=== PATIENT | female | born 1940 | race Caucasian/White ===

== ENCOUNTER 2022-03-05 14:13 | Inpatient (IN) | payer MEDICARE ==
[2022-03-06] MEDS ORDERED: Ondansetron PF 4 MG/2 ML Vial IVP PRN (19:56)
[2022-03-06] MEDS ORDERED: Acetaminophen 325 MG TAB PO PRN (19:56)
[2022-03-06] MEDS ORDERED: HYDROcodone/Acetaminophen 5/325 mg Tablet PO PRN ×2 (19:56)
[2022-03-06] MEDS ORDERED: Ondansetron ODT 4 MG TAB PO PRN (19:56)
[2022-03-07] MEDS: Ipratropium Bromide 2.5 ml Neb NEB PRN (04:40)
[2022-03-07 06:11] LABS: #Basophils 0.1 thou/uL (0.0-0.2); #Eosinphils 0.2 thou/uL (0.0-0.7); #Lymphocytes 1.5 thou/uL (1.20-3.40); #Monocytes 0.7 thou/uL (0.11-0.59); %Basophils 1.1 % (0.0-1.0); %Eosinophils 2.7 % (0.0-10.0); %Lymphocytes 23.5 % (21.0-51.0); %Monocytes 10.7 % (0.0-10.0); Hemoglobin 11.3 g/dL (12.0-16.0); Mean Corpuscular HGB CONC 30.8 g/dL (32.0-36.0); Mean Corpuscular Hemoglobin 32.2 pg (27.0-31.0); Mean Platelet Volume 9.3 fL (7.4-10.4); Platelet Count 179 thou/uL (130-400); RBC Distribution Width 11.7 % (11.5-14.5); Red Blood Cell (RBC) Count 3.52 mill/uL (4.20-5.40); White Blood Cell (WBC) Count 6.5 thou/uL (4.8-10.8)
[2022-03-07 06:12] LABS: ALT (SGPT) 11 U/L (8-55); AST (SGOT) 15 U/L (5-34); Albumin 3.8 g/dL (3.4-4.8); Alkaline Phosphatase 76 U/L (40-110); BUN (Urea Nitrogen) 17 mg/dL (9.8-20.1); Bilirubin, Total 0.5 mg/dL (0.2-1.2); Calc. Creatinine Clearance 63 mL/min (70-130); Calcium 9.1 mg/dL (7.8-10.44); Estimated GFR 89; Globulin 3.5 g/dL (2.4-3.5); Glucose 112 mg/dL (83-110)
[2022-03-07 06:15] LABS: Chloride 88 mmol/L (98-107); Potassium 3.5 mmol/L (3.5-5.1); Sodium 143 mmol/L (136-145)
[2022-03-07 06:26] LABS: Carbon Dioxide 37 mmol/L (23-31); Protein, Total 7.3 g/dL (5.8-8.1)
[2022-03-07] MEDS: Ferrous Sulfate 325 MG TAB PO SCH (09:21)
[2022-03-07] MEDS: Aspirin Chewable 81 MG TAB PO SCH (09:21)
[2022-03-07] MEDS: Clopidogrel Bisulfate 75 MG TAB PO SCH (09:21)
[2022-03-07] MEDS: Enoxaparin Sodium 40 MG/0.4 ML SYRINGE SC SCH (09:21)
[2022-03-07] MEDS: Multivitamin W/ Minerals 1 TAB PO SCH (09:21)
[2022-03-07] MEDS: Cholecalciferol 1,000 UNITS (25 MCG) TAB PO SCH (09:21)
[2022-03-07] MEDS: ZONISAMIDE 25 MG PO SCH (22:00)
[2022-03-08] MEDS ORDERED: Polyethylene Glycol 3350 17 GM Packet PO PRN (07:14)
[2022-03-08] MEDS: Enoxaparin Sodium 40 MG/0.4 ML SYRINGE SC SCH (08:20)
[2022-03-08] MEDS: Cholecalciferol 1,000 UNITS (25 MCG) TAB PO SCH (08:21)
[2022-03-08] MEDS: Ferrous Sulfate 325 MG TAB PO SCH (08:21)
[2022-03-08] MEDS: Clopidogrel Bisulfate 75 MG TAB PO SCH (08:21)
[2022-03-08] MEDS: Multivitamin W/ Minerals 1 TAB PO SCH (08:21)
[2022-03-08] MEDS: Aspirin Chewable 81 MG TAB PO SCH (08:21)
[2022-03-08] MEDS: ZONISAMIDE 25 MG PO SCH ×2 (21:05)
[2022-03-09 06:10] LABS: #Basophils 0.1 thou/uL (0.0-0.2); #Eosinphils 0.2 thou/uL (0.0-0.7); #Lymphocytes 2.1 thou/uL (1.20-3.40); #Monocytes 0.6 thou/uL (0.11-0.59); #Neutrophils 3.2 thou/uL (1.40-6.50); %Eosinophils 2.7 % (0.0-10.0); %Lymphocytes 33.4 % (21.0-51.0); %Neutrophils 52.9 % (42.0-75.0); Hemoglobin 10.5 g/dL (12.0-16.0); Mean Corpuscular HGB CONC 31.7 g/dL (32.0-36.0); Mean Corpuscular Hemoglobin 32.4 pg (27.0-31.0); Mean Platelet Volume 9.8 fL (7.4-10.4); Platelet Count 213 thou/uL (130-400); RBC Distribution Width 11.6 % (11.5-14.5); Red Blood Cell (RBC) Count 3.24 mill/uL (4.20-5.40); White Blood Cell (WBC) Count 6.1 thou/uL (4.8-10.8)
[2022-03-09 06:23] LABS: BUN (Urea Nitrogen) 11 mg/dL (9.8-20.1); Calc. Creatinine Clearance 68 mL/min (70-130); Calcium 9.6 mg/dL (7.8-10.44); Estimated GFR 90; Glucose 112 mg/dL (83-110)
[2022-03-09 06:42] LABS: Carbon Dioxide 38 mmol/L (23-31)
[2022-03-09 06:44] LABS: Chloride 91 mmol/L (98-107); Potassium 4.4 mmol/L (3.5-5.1); Sodium 142 mmol/L (136-145)
[2022-03-09] MEDS: Enoxaparin Sodium 40 MG/0.4 ML SYRINGE SC SCH (09:41)
[2022-03-09] MEDS: Torsemide 20 MG TAB PO SCH (09:42)
[2022-03-09] MEDS: Cholecalciferol 1,000 UNITS (25 MCG) TAB PO SCH (09:42)
[2022-03-09] MEDS: Aspirin Chewable 81 MG TAB PO SCH (09:42)
[2022-03-09] MEDS: Multivitamin W/ Minerals 1 TAB PO SCH (09:43)
[2022-03-09] MEDS: Potassium Chloride 20 MEQ TAB PO SCH (09:43)
[2022-03-09] MEDS: Clopidogrel Bisulfate 75 MG TAB PO SCH (09:43)
[2022-03-09] MEDS: Ferrous Sulfate 325 MG TAB PO SCH (09:43)
[2022-03-09 14:08] LABS: Base Excess-Venous 14.1 mmol/L (-2.0 to 3.0); Bicarbonate (HCO3v) 44.2 mmol/L (22.0-28.0); CO2 Tension (PvCO2) 87.3 mmHg (42.0-51.0); Calcium, Ionized 1.27 mmol/L (1.15-1.33); Chloride 88 mmol/L (98-107); Hemoglobin - Calc 12.5 g/dL (12.0-16.0); Potassium 3.9 mmol/L (3.5-5.1); Sodium 141 mmol/L (138-145); T. Carbon Dioxide 46.9 mmol/L (22.0-28.0); vO2 Saturation-calc 63.2 % (60.0-85.0)
[2022-03-09] MEDS: ZONISAMIDE 25 MG PO SCH (20:10)
[2022-03-10] MEDS: Cholecalciferol 1,000 UNITS (25 MCG) TAB PO SCH (09:36)
[2022-03-10] MEDS: Multivitamin W/ Minerals 1 TAB PO SCH ×2 (09:37→09:44)
[2022-03-10] MEDS: Clopidogrel Bisulfate 75 MG TAB PO SCH (09:37)
[2022-03-10] MEDS: Enoxaparin Sodium 40 MG/0.4 ML SYRINGE SC SCH (09:37)
[2022-03-10] MEDS: Ferrous Sulfate 325 MG TAB PO SCH (09:37)
[2022-03-10] MEDS: Aspirin Chewable 81 MG TAB PO SCH (09:37)
[2022-03-10] MEDS: ZONISAMIDE 25 MG PO SCH (21:04)
[2022-03-11] MEDS: Enoxaparin Sodium 40 MG/0.4 ML SYRINGE SC SCH (09:15)
[2022-03-11] MEDS: Multivitamin W/ Minerals 1 TAB PO SCH (09:16)
[2022-03-11] MEDS: Cholecalciferol 1,000 UNITS (25 MCG) TAB PO SCH (09:16)
[2022-03-11] MEDS: Potassium Chloride 20 MEQ TAB PO SCH (09:16)
[2022-03-11] MEDS: Ferrous Sulfate 325 MG TAB PO SCH (09:16)
[2022-03-11] MEDS: Aspirin Chewable 81 MG TAB PO SCH (09:16)
[2022-03-11] MEDS: Clopidogrel Bisulfate 75 MG TAB PO SCH (09:16)
[2022-03-11] MEDS: Torsemide 20 MG TAB PO SCH (09:17)
[2022-03-11] MEDS: ZONISAMIDE 25 MG PO SCH (20:52)
[2022-03-12 06:14] LABS: #Basophils 0.1 thou/uL (0.0-0.2); #Eosinphils 0.1 thou/uL (0.0-0.7); #Lymphocytes 1.6 thou/uL (1.20-3.40); #Monocytes 0.6 thou/uL (0.11-0.59); %Basophils 1.3 % (0.0-1.0); %Eosinophils 2.6 % (0.0-10.0); %Lymphocytes 30.3 % (21.0-51.0); %Monocytes 10.7 % (0.0-10.0); %Neutrophils 55.2 % (42.0-75.0); Mean Corpuscular HGB CONC 31.2 g/dL (32.0-36.0); Mean Platelet Volume 8.8 fL (7.4-10.4); Platelet Count 236 thou/uL (130-400); RBC Distribution Width 12.1 % (11.5-14.5); Red Blood Cell (RBC) Count 3.14 mill/uL (4.20-5.40); White Blood Cell (WBC) Count 5.4 thou/uL (4.8-10.8)
[2022-03-12 06:28] LABS: BUN (Urea Nitrogen) 16 mg/dL (9.8-20.1); Calc. Creatinine Clearance 62 mL/min (70-130); Calcium 9.4 mg/dL (7.8-10.44); Estimated GFR 88; Glucose 99 mg/dL (83-110)
[2022-03-12 08:30] LABS: Chloride 91 mmol/L (98-107); Potassium 4.3 mmol/L (3.5-5.1); Sodium 142 mmol/L (136-145)
[2022-03-12 08:34] LABS: Anion Gap 18 mmol/L (10-20); Carbon Dioxide 37 mmol/L (23-31)
[2022-03-12] MEDS: Cholecalciferol 1,000 UNITS (25 MCG) TAB PO SCH (08:52)
[2022-03-12] MEDS: Clopidogrel Bisulfate 75 MG TAB PO SCH (08:53)
[2022-03-12] MEDS: Ferrous Sulfate 325 MG TAB PO SCH (08:53)
[2022-03-12] MEDS: Aspirin Chewable 81 MG TAB PO SCH (08:53)
[2022-03-12] MEDS: Multivitamin W/ Minerals 1 TAB PO SCH (08:53)
[2022-03-12] MEDS: Enoxaparin Sodium 40 MG/0.4 ML SYRINGE SC SCH (08:54)
[2022-03-12] MEDS: Ipratropium Bromide 2.5 ml Neb NEB PRN (15:36)
[2022-03-12] MEDS: ZONISAMIDE 25 MG PO SCH (20:19)
[2022-03-13] MEDS: Multivitamin W/ Minerals 1 TAB PO SCH (08:44)
[2022-03-13] MEDS: Cholecalciferol 1,000 UNITS (25 MCG) TAB PO SCH (08:44)
[2022-03-13] MEDS: Potassium Chloride 20 MEQ TAB PO SCH (08:45)
[2022-03-13] MEDS: Aspirin Chewable 81 MG TAB PO SCH (08:45)
[2022-03-13] MEDS: Ferrous Sulfate 325 MG TAB PO SCH (08:45)
[2022-03-13] MEDS: Enoxaparin Sodium 40 MG/0.4 ML SYRINGE SC SCH (08:46)
[2022-03-13] MEDS: Clopidogrel Bisulfate 75 MG TAB PO SCH (08:46)
[2022-03-13] MEDS: Torsemide 20 MG TAB PO SCH (09:04)
[2022-03-13] MEDS: ZONISAMIDE 25 MG PO SCH (20:36)
[2022-03-13] MEDS ORDERED: ZONISAMIDE 25 MG PO SCH (21:00)
[2022-03-14] MEDS: Enoxaparin Sodium 40 MG/0.4 ML SYRINGE SC SCH (08:47)
[2022-03-14] MEDS: Aspirin Chewable 81 MG TAB PO SCH (08:57)
[2022-03-14] MEDS: Cholecalciferol 1,000 UNITS (25 MCG) TAB PO SCH (08:57)
[2022-03-14] MEDS: Multivitamin W/ Minerals 1 TAB PO SCH (08:57)
[2022-03-14] MEDS: Ferrous Sulfate 325 MG TAB PO SCH (08:58)
[2022-03-14] MEDS: Clopidogrel Bisulfate 75 MG TAB PO SCH (08:58)
[2022-03-14] MEDS: Calcium Carbonate 500 MG ChewTAB PO PRN (21:03)
[2022-03-14] MEDS: ZONISAMIDE 25 MG PO SCH (21:05)
[2022-03-15 05:38] LABS: #Basophils 0.1 thou/uL (0.0-0.2); #Eosinphils 0.1 thou/uL (0.0-0.7); #Lymphocytes 1.8 thou/uL (1.20-3.40); #Monocytes 0.6 thou/uL (0.11-0.59); #Neutrophils 4.6 thou/uL (1.40-6.50); %Basophils 0.8 % (0.0-1.0); %Eosinophils 1.6 % (0.0-10.0); %Lymphocytes 24.7 % (21.0-51.0); %Monocytes 8.9 % (0.0-10.0); %Neutrophils 63.9 % (42.0-75.0); Hemoglobin 10.9 g/dL (12.0-16.0); Mean Corpuscular HGB CONC 30.6 g/dL (32.0-36.0); Mean Platelet Volume 8.3 fL (7.4-10.4); Platelet Count 269 thou/uL (130-400); RBC Distribution Width 12.3 % (11.5-14.5); White Blood Cell (WBC) Count 7.2 thou/uL (4.8-10.8)
[2022-03-15 05:44] LABS: BUN (Urea Nitrogen) 12 mg/dL (9.8-20.1); Calc. Creatinine Clearance 53 mL/min (70-130); Calcium 10.9 mg/dL (7.8-10.44); Estimated GFR 83; Glucose 107 mg/dL (83-110)
[2022-03-15 06:23] LABS: Carbon Dioxide Greater than 37 mmol/L (23-31); Chloride 95 mmol/L (98-107); Potassium 4.4 mmol/L (3.5-5.1); Sodium 143 mmol/L (136-145)
[2022-03-15] MEDS: Ferrous Sulfate 325 MG TAB PO SCH (08:59)
[2022-03-15] MEDS: Multivitamin W/ Minerals 1 TAB PO SCH (09:01)
[2022-03-15] MEDS: Cholecalciferol 1,000 UNITS (25 MCG) TAB PO SCH (09:01)
[2022-03-15] MEDS: Clopidogrel Bisulfate 75 MG TAB PO SCH (09:03)
[2022-03-15] MEDS: Aspirin Chewable 81 MG TAB PO SCH (09:03)
[2022-03-15] MEDS: Enoxaparin Sodium 40 MG/0.4 ML SYRINGE SC SCH (09:03)
[2022-03-15] MEDS: ZONISAMIDE 25 MG PO SCH (20:12)
[2022-03-16] MEDS: Enoxaparin Sodium 40 MG/0.4 ML SYRINGE SC SCH (08:03)
[2022-03-16] MEDS: Multivitamin W/ Minerals 1 TAB PO SCH (08:03)
[2022-03-16] MEDS: Aspirin Chewable 81 MG TAB PO SCH (08:03)
[2022-03-16] MEDS: Torsemide 20 MG TAB PO SCH (08:03)
[2022-03-16] MEDS: Cholecalciferol 1,000 UNITS (25 MCG) TAB PO SCH (08:03)
[2022-03-16] MEDS: Potassium Chloride 20 MEQ TAB PO SCH (08:03)
[2022-03-16] MEDS: Ferrous Sulfate 325 MG TAB PO SCH (08:03)
[2022-03-16] MEDS: Clopidogrel Bisulfate 75 MG TAB PO SCH (08:04)
[2022-03-16] MEDS: ZONISAMIDE 25 MG PO SCH (20:07)
[2022-03-17] MEDS: Ipratropium Bromide 2.5 ml Neb NEB PRN (06:32)
[2022-03-17] MEDS: Aspirin Chewable 81 MG TAB PO SCH (07:54)
[2022-03-17] MEDS: Enoxaparin Sodium 40 MG/0.4 ML SYRINGE SC SCH (07:54)
[2022-03-17] MEDS: Cholecalciferol 1,000 UNITS (25 MCG) TAB PO SCH (07:54)
[2022-03-17] MEDS: Clopidogrel Bisulfate 75 MG TAB PO SCH (07:55)
[2022-03-17] MEDS: Ferrous Sulfate 325 MG TAB PO SCH (07:55)
[2022-03-17] MEDS: Multivitamin W/ Minerals 1 TAB PO SCH (07:55)
[2022-03-17 09:55] LABS: #Eosinphils 0.1 thou/uL (0.0-0.7); #Lymphocytes 0.8 thou/uL (1.20-3.40); #Monocytes 0.6 thou/uL (0.11-0.59); #Neutrophils 3.4 thou/uL (1.40-6.50); %Basophils 0.9 % (0.0-1.0); %Eosinophils 1.9 % (0.0-10.0); %Lymphocytes 16.8 % (21.0-51.0); %Monocytes 11.9 % (0.0-10.0); %Neutrophils 68.5 % (42.0-75.0); Hemoglobin 10.8 g/dL (12.0-16.0); Mean Corpuscular HGB CONC 31.1 g/dL (32.0-36.0); Mean Corpuscular Hemoglobin 32.1 pg (27.0-31.0); Mean Platelet Volume 8.8 fL (7.4-10.4); Platelet Count 245 thou/uL (130-400); RBC Distribution Width 12.4 % (11.5-14.5); Red Blood Cell (RBC) Count 3.37 mill/uL (4.20-5.40); White Blood Cell (WBC) Count 4.9 thou/uL (4.8-10.8)
[2022-03-17] MEDS: ZONISAMIDE 25 MG PO SCH (20:36)
[2022-03-18 06:12] LABS: Anion Gap 13 mmol/L (10-20); BUN (Urea Nitrogen) 11 mg/dL (9.8-20.1); Calc. Creatinine Clearance 57 mL/min (70-130); Calcium 8.9 mg/dL (7.8-10.44); Carbon Dioxide 37 mmol/L (23-31); Chloride 94 mmol/L (98-107); Estimated GFR 87; Glucose 105 mg/dL (83-110); Potassium 4.1 mmol/L (3.5-5.1); Sodium 140 mmol/L (136-145)
[2022-03-18 06:39] LABS: #Basophils 0.1 thou/uL (0.0-0.2); #Monocytes 0.7 thou/uL (0.11-0.59); #Neutrophils 2.6 thou/uL (1.40-6.50); %Basophils 1.2 % (0.0-1.0); %Eosinophils 0.8 % (0.0-10.0); %Lymphocytes 23.8 % (21.0-51.0); %Monocytes 14.9 % (0.0-10.0); %Neutrophils 59.3 % (42.0-75.0); Hemoglobin 10.6 g/dL (12.0-16.0); Mean Corpuscular Hemoglobin 31.9 pg (27.0-31.0); Mean Platelet Volume 9.1 fL (7.4-10.4); Platelet Count 203 thou/uL (130-400); RBC Distribution Width 12.4 % (11.5-14.5); Red Blood Cell (RBC) Count 3.31 mill/uL (4.20-5.40); White Blood Cell (WBC) Count 4.4 thou/uL (4.8-10.8)
[2022-03-18] MEDS: Multivitamin W/ Minerals 1 TAB PO SCH (08:42)
[2022-03-18] MEDS: Torsemide 20 MG TAB PO SCH (08:42)
[2022-03-18] MEDS: Aspirin Chewable 81 MG TAB PO SCH (08:42)
[2022-03-18] MEDS: Enoxaparin Sodium 40 MG/0.4 ML SYRINGE SC SCH (08:42)
[2022-03-18] MEDS: Potassium Chloride 20 MEQ TAB PO SCH (08:42)
[2022-03-18] MEDS: Ferrous Sulfate 325 MG TAB PO SCH (08:42)
[2022-03-18] MEDS: Cholecalciferol 1,000 UNITS (25 MCG) TAB PO SCH (08:43)
[2022-03-18] MEDS: Clopidogrel Bisulfate 75 MG TAB PO SCH (08:43)
[2022-03-18] MEDS: Ipratropium Bromide 2.5 ml Neb NEB PRN ×2 (09:30→16:02)
[2022-03-18] MEDS: ZONISAMIDE 25 MG PO SCH (20:04)
[2022-03-19] MEDS: Cholecalciferol 1,000 UNITS (25 MCG) TAB PO SCH (08:43)
[2022-03-19] MEDS: Clopidogrel Bisulfate 75 MG TAB PO SCH (08:43)
[2022-03-19] MEDS: Multivitamin W/ Minerals 1 TAB PO SCH (08:44)
[2022-03-19] MEDS: Aspirin Chewable 81 MG TAB PO SCH (08:44)
[2022-03-19] MEDS: Ferrous Sulfate 325 MG TAB PO SCH ×2 (08:44→08:46)
[2022-03-19] MEDS: Enoxaparin Sodium 40 MG/0.4 ML SYRINGE SC SCH (08:44)
[2022-03-19] MEDS: ZONISAMIDE 25 MG PO SCH (20:28)
[2022-03-20] MEDS: Multivitamin W/ Minerals 1 TAB PO SCH (09:47)
[2022-03-20] MEDS: Potassium Chloride 20 MEQ TAB PO SCH (09:47)
[2022-03-20] MEDS: Cholecalciferol 1,000 UNITS (25 MCG) TAB PO SCH (09:47)
[2022-03-20] MEDS: Aspirin Chewable 81 MG TAB PO SCH (09:47)
[2022-03-20] MEDS: Clopidogrel Bisulfate 75 MG TAB PO SCH (09:47)
[2022-03-20] MEDS: Torsemide 20 MG TAB PO SCH (09:48)
[2022-03-20] MEDS: Ferrous Sulfate 325 MG TAB PO SCH (09:54)
[2022-03-20] MEDS: Calcium Carbonate 500 MG ChewTAB PO PRN ×2 (15:41→20:38)
[2022-03-20] MEDS: ZONISAMIDE 25 MG PO SCH (20:39)
[2022-03-21 05:51] LABS: White Blood Cell (WBC) Count 4.4 thou/uL (4.8-10.8)
[2022-03-21 05:52] LABS: #Eosinphils 0.1 thou/uL (0.0-0.7); #Lymphocytes 2.4 thou/uL (1.20-3.40); #Monocytes 0.4 thou/uL (0.11-0.59); #Neutrophils 1.5 thou/uL (1.40-6.50); %Basophils 0.8 % (0.0-1.0); %Eosinophils 1.4 % (0.0-10.0); %Lymphocytes 53.8 % (21.0-51.0); %Monocytes 10.1 % (0.0-10.0); %Neutrophils 33.9 % (42.0-75.0); Hemoglobin 11.4 g/dL (12.0-16.0); Mean Corpuscular HGB CONC 31.4 g/dL (32.0-36.0); Mean Platelet Volume 9.3 fL (7.4-10.4); Platelet Count 180 thou/uL (130-400); RBC Distribution Width 12.4 % (11.5-14.5); Red Blood Cell (RBC) Count 3.55 mill/uL (4.20-5.40)
[2022-03-21 05:56] LABS: BUN (Urea Nitrogen) 15 mg/dL (9.8-20.1); Calc. Creatinine Clearance 58 mL/min (70-130); Calcium 9.8 mg/dL (7.8-10.44); Estimated GFR 88; Glucose 95 mg/dL (83-110)
[2022-03-21 06:02] LABS: Carbon Dioxide 37 mmol/L (23-31)
[2022-03-21 06:03] LABS: Chloride 93 mmol/L (98-107); Potassium 4.2 mmol/L (3.5-5.1); Sodium 142 mmol/L (136-145)
[2022-03-21] MEDS: Cholecalciferol 1,000 UNITS (25 MCG) TAB PO SCH (10:18)
[2022-03-21] MEDS: Aspirin Chewable 81 MG TAB PO SCH (10:18)
[2022-03-21] MEDS: Ferrous Sulfate 325 MG TAB PO SCH (10:21)
[2022-03-21] MEDS: Clopidogrel Bisulfate 75 MG TAB PO SCH (10:21)
[2022-03-21] MEDS: Multivitamin W/ Minerals 1 TAB PO SCH (10:22)
[2022-03-21] MEDS: ZONISAMIDE 25 MG PO SCH (20:05)
[2022-03-22] MEDS: Aspirin Chewable 81 MG TAB PO SCH (08:14)
[2022-03-22] MEDS: Cholecalciferol 1,000 UNITS (25 MCG) TAB PO SCH (08:14)
[2022-03-22] MEDS: Multivitamin W/ Minerals 1 TAB PO SCH (08:14)
[2022-03-22] MEDS: Ferrous Sulfate 325 MG TAB PO SCH (08:15)
[2022-03-22] MEDS: Clopidogrel Bisulfate 75 MG TAB PO SCH (08:15)
[2022-03-22] MEDS ORDERED: Non-Formulary Item 1 EACH (Omeprazole [Omeprazole] 20 MG Tablet.Dr) PO SCH (09:00)
[2022-03-22] MEDS: ZONISAMIDE 25 MG PO SCH (21:01)
[2022-03-23] MEDS: Torsemide 20 MG TAB PO SCH (08:54)
[2022-03-23] MEDS: Potassium Chloride 20 MEQ TAB PO SCH (08:54)
[2022-03-23] MEDS: Aspirin Chewable 81 MG TAB PO SCH (08:55)
[2022-03-23] MEDS: Clopidogrel Bisulfate 75 MG TAB PO SCH (08:55)
[2022-03-23] MEDS: Ferrous Sulfate 325 MG TAB PO SCH (08:55)
[2022-03-23] MEDS: Cholecalciferol 1,000 UNITS (25 MCG) TAB PO SCH (08:55)
[2022-03-23] MEDS: Multivitamin W/ Minerals 1 TAB PO SCH (08:55)
[2022-03-23] MEDS: ZONISAMIDE 25 MG PO SCH (21:30)
[2022-03-24] MEDS: Aspirin Chewable 81 MG TAB PO SCH (07:40)
[2022-03-24] MEDS: Cholecalciferol 1,000 UNITS (25 MCG) TAB PO SCH (07:40)
[2022-03-24] MEDS: Ferrous Sulfate 325 MG TAB PO SCH (07:41)
[2022-03-24] MEDS: Multivitamin W/ Minerals 1 TAB PO SCH (07:41)
[2022-03-24] MEDS: Clopidogrel Bisulfate 75 MG TAB PO SCH (07:41)
[2022-03-24] MEDS: ZONISAMIDE 25 MG PO SCH (21:08)
[2022-03-25] MEDS: Aspirin Chewable 81 MG TAB PO SCH (08:00)
[2022-03-25] MEDS: Torsemide 20 MG TAB PO SCH (08:00)
[2022-03-25] MEDS: Ferrous Sulfate 325 MG TAB PO SCH (08:00)
[2022-03-25] MEDS: Potassium Chloride 20 MEQ TAB PO SCH (08:00)
[2022-03-25] MEDS: Clopidogrel Bisulfate 75 MG TAB PO SCH (08:01)
[2022-03-25] MEDS: Cholecalciferol 1,000 UNITS (25 MCG) TAB PO SCH (08:01)
[2022-03-25] MEDS: Multivitamin W/ Minerals 1 TAB PO SCH (08:01)
[2022-03-25] MEDS: ZONISAMIDE 25 MG PO SCH (20:52)
[2022-03-26 06:30] LABS: BUN (Urea Nitrogen) 11 mg/dL (9.8-20.1); Calc. Creatinine Clearance 57 mL/min (70-130); Calcium 9.5 mg/dL (7.8-10.44); Estimated GFR 88; Glucose 101 mg/dL (83-110)
[2022-03-26 06:34] LABS: Chloride 92 mmol/L (98-107); Potassium 3.7 mmol/L (3.5-5.1); Sodium 143 mmol/L (136-145)
[2022-03-26 06:47] LABS: #Eosinphils 0.1 thou/uL (0.0-0.7); #Lymphocytes 1.4 thou/uL (1.20-3.40); #Monocytes 0.5 thou/uL (0.11-0.59); #Neutrophils 2.1 thou/uL (1.40-6.50); %Basophils 0.7 % (0.0-1.0); %Eosinophils 2.1 % (0.0-10.0); %Lymphocytes 33.4 % (21.0-51.0); %Monocytes 12.3 % (0.0-10.0); %Neutrophils 51.5 % (42.0-75.0); Hemoglobin 11.5 g/dL (12.0-16.0); Mean Corpuscular HGB CONC 30.2 g/dL (32.0-36.0); Mean Corpuscular Hemoglobin 31.1 pg (27.0-31.0); Mean Platelet Volume 10.8 fL (7.4-10.4); Platelet Count 183 thou/uL (130-400); RBC Distribution Width 12.1 % (11.5-14.5); Red Blood Cell (RBC) Count 3.69 mill/uL (4.20-5.40); White Blood Cell (WBC) Count 4.1 thou/uL (4.8-10.8)
[2022-03-26 07:11] LABS: Carbon Dioxide 38 mmol/L (23-31)
[2022-03-26 07:22] LABS: Anion Gap 17 mmol/L (10-20)
[2022-03-26] MEDS: Aspirin Chewable 81 MG TAB PO SCH (08:00)
[2022-03-26] MEDS: Cholecalciferol 1,000 UNITS (25 MCG) TAB PO SCH (08:00)
[2022-03-26] MEDS: Ferrous Sulfate 325 MG TAB PO SCH (08:01)
[2022-03-26] MEDS: Clopidogrel Bisulfate 75 MG TAB PO SCH (08:01)
[2022-03-26] MEDS: Multivitamin W/ Minerals 1 TAB PO SCH ×2 (08:01→08:02)
[2022-03-26] MEDS: ZONISAMIDE 25 MG PO SCH (20:02)
[2022-03-27] MEDS: Torsemide 20 MG TAB PO SCH (08:03)
[2022-03-27] MEDS: Clopidogrel Bisulfate 75 MG TAB PO SCH (08:03)
[2022-03-27] MEDS: Ferrous Sulfate 325 MG TAB PO SCH (08:03)
[2022-03-27] MEDS: Aspirin Chewable 81 MG TAB PO SCH (08:03)
[2022-03-27] MEDS: Potassium Chloride 20 MEQ TAB PO SCH (08:03)
[2022-03-27] MEDS: Multivitamin W/ Minerals 1 TAB PO SCH (08:03)
[2022-03-27] MEDS: Cholecalciferol 1,000 UNITS (25 MCG) TAB PO SCH (08:03)
[2022-03-27] MEDS: ZONISAMIDE 25 MG PO SCH (20:52)
[2022-03-28 05:28] LABS: #Eosinphils 0.1 thou/uL (0.0-0.7)
[2022-03-28 05:39] LABS: BUN (Urea Nitrogen) 9 mg/dL (9.8-20.1); Calc. Creatinine Clearance 60 mL/min (70-130); Calcium 9.4 mg/dL (7.8-10.44); Estimated GFR 89; Glucose 100 mg/dL (83-110)
[2022-03-28 05:44] LABS: Chloride 93 mmol/L (98-107); Potassium 3.9 mmol/L (3.5-5.1); Sodium 141 mmol/L (136-145)
[2022-03-28 05:47] LABS: #Monocytes 0.7 thou/uL (0.11-0.59); #Neutrophils 2.2 thou/uL (1.40-6.50); %Basophils 0.8 % (0.0-1.0); %Lymphocytes 40.5 % (21.0-51.0); %Monocytes 12.9 % (0.0-10.0); %Neutrophils 43.8 % (42.0-75.0); Hemoglobin 11.3 g/dL (12.0-16.0); Mean Corpuscular HGB CONC 30.5 g/dL (32.0-36.0); Mean Corpuscular Hemoglobin 30.9 pg (27.0-31.0); Mean Platelet Volume 10.1 fL (7.4-10.4); Platelet Count 189 thou/uL (130-400); RBC Distribution Width 11.8 % (11.5-14.5); Red Blood Cell (RBC) Count 3.66 mill/uL (4.20-5.40)
[2022-03-28 06:17] LABS: Carbon Dioxide 38 mmol/L (23-31)
[2022-03-28] MEDS: Aspirin Chewable 81 MG TAB PO SCH (09:23)
[2022-03-28] MEDS: Ferrous Sulfate 325 MG TAB PO SCH (09:23)
[2022-03-28] MEDS: Clopidogrel Bisulfate 75 MG TAB PO SCH (09:24)
[2022-03-28] MEDS: Multivitamin W/ Minerals 1 TAB PO SCH (09:24)
[2022-03-28] MEDS: Cholecalciferol 1,000 UNITS (25 MCG) TAB PO SCH (09:24)
[2022-03-28] MEDS: Calcium Carbonate 500 MG ChewTAB PO PRN (19:59)
[2022-03-28] MEDS: ZONISAMIDE 25 MG PO SCH (20:00)
[2022-03-29 04:57] VITALS: BMI 23.1
[2022-03-29] MEDS: Clopidogrel Bisulfate 75 MG TAB PO SCH (08:55)
[2022-03-29] MEDS: Multivitamin W/ Minerals 1 TAB PO SCH (08:55)
[2022-03-29] MEDS: Cholecalciferol 1,000 UNITS (25 MCG) TAB PO SCH (08:55)
[2022-03-29] MEDS: Ferrous Sulfate 325 MG TAB PO SCH (08:55)
[2022-03-29] MEDS: Aspirin Chewable 81 MG TAB PO SCH (08:56)
[2022-03-29] MEDS: ZONISAMIDE 25 MG PO SCH (20:10)
[2022-03-30 06:01] LABS: #Eosinphils 0.1 thou/uL (0.0-0.7); #Monocytes 0.5 thou/uL (0.11-0.59); #Neutrophils 2.3 thou/uL (1.40-6.50); %Basophils 0.6 % (0.0-1.0); %Eosinophils 1.5 % (0.0-10.0); %Lymphocytes 40.9 % (21.0-51.0); Hemoglobin 10.8 g/dL (12.0-16.0); Mean Corpuscular HGB CONC 30.7 g/dL (32.0-36.0); Mean Corpuscular Hemoglobin 30.9 pg (27.0-31.0); Platelet Count 189 thou/uL (130-400); RBC Distribution Width 11.7 % (11.5-14.5); White Blood Cell (WBC) Count 4.9 thou/uL (4.8-10.8)
[2022-03-30 06:11] LABS: Anion Gap 16 mmol/L (10-20); BUN (Urea Nitrogen) 8 mg/dL (9.8-20.1); Calc. Creatinine Clearance 62 mL/min (70-130); Calcium 9.4 mg/dL (7.8-10.44); Carbon Dioxide 36 mmol/L (23-31); Chloride 95 mmol/L (98-107); Estimated GFR 89; Glucose 99 mg/dL (83-110); Sodium 143 mmol/L (136-145)
[2022-03-30] MEDS: Clopidogrel Bisulfate 75 MG TAB PO SCH (07:59)
[2022-03-30] MEDS: Multivitamin W/ Minerals 1 TAB PO SCH (07:59)
[2022-03-30] MEDS: Aspirin Chewable 81 MG TAB PO SCH (07:59)
[2022-03-30] MEDS: Potassium Chloride 20 MEQ TAB PO SCH (07:59)
[2022-03-30] MEDS: Cholecalciferol 1,000 UNITS (25 MCG) TAB PO SCH (07:59)
[2022-03-30] MEDS: Torsemide 20 MG TAB PO SCH (08:00)
[2022-03-30] MEDS: Ferrous Sulfate 325 MG TAB PO SCH ×2 (08:02→08:03)
[2022-03-30] MEDS: Calcium Carbonate 500 MG ChewTAB PO PRN (19:33)
[2022-03-30] MEDS: ZONISAMIDE 25 MG PO SCH (21:35)
[2022-03-31] MEDS: Multivitamin W/ Minerals 1 TAB PO SCH (07:41)
[2022-03-31] MEDS: Ferrous Sulfate 325 MG TAB PO SCH (07:42)
[2022-03-31] MEDS: Clopidogrel Bisulfate 75 MG TAB PO SCH (07:42)
[2022-03-31] MEDS: Cholecalciferol 1,000 UNITS (25 MCG) TAB PO SCH (07:43)
[2022-03-31] MEDS: Aspirin Chewable 81 MG TAB PO SCH (07:43)
[2022-03-31] MEDS: ZONISAMIDE 25 MG PO SCH (21:41)
[2022-04-01 06:05] LABS: #Monocytes 0.8 thou/uL (0.11-0.59); #Neutrophils 3.8 thou/uL (1.40-6.50); %Basophils 0.3 % (0.0-1.0); %Eosinophils 0.5 % (0.0-10.0); %Lymphocytes 29.8 % (21.0-51.0); %Monocytes 11.8 % (0.0-10.0); %Neutrophils 57.5 % (42.0-75.0); Hemoglobin 11.4 g/dL (12.0-16.0); Mean Corpuscular HGB CONC 30.7 g/dL (32.0-36.0); Mean Corpuscular Hemoglobin 31.3 pg (27.0-31.0); Mean Platelet Volume 9.3 fL (7.4-10.4); Platelet Count 190 thou/uL (130-400); RBC Distribution Width 11.9 % (11.5-14.5); Red Blood Cell (RBC) Count 3.65 mill/uL (4.20-5.40); White Blood Cell (WBC) Count 6.6 thou/uL (4.8-10.8)
[2022-04-01 06:14] LABS: BUN (Urea Nitrogen) 12 mg/dL (9.8-20.1); Calc. Creatinine Clearance 60 mL/min (70-130); Calcium 9.3 mg/dL (7.8-10.44); Estimated GFR 88; Glucose 105 mg/dL (83-110)
[2022-04-01 06:46] LABS: Anion Gap 13 mmol/L (10-20); Carbon Dioxide 38 mmol/L (23-31); Chloride 94 mmol/L (98-107); Potassium 4.1 mmol/L (3.5-5.1); Sodium 141 mmol/L (136-145)
[2022-04-01] MEDS: Multivitamin W/ Minerals 1 TAB PO SCH (07:47)
[2022-04-01] MEDS: Potassium Chloride 20 MEQ TAB PO SCH (07:47)
[2022-04-01] MEDS: Aspirin Chewable 81 MG TAB PO SCH (07:48)
[2022-04-01] MEDS: Cholecalciferol 1,000 UNITS (25 MCG) TAB PO SCH (07:48)
[2022-04-01] MEDS: Torsemide 20 MG TAB PO SCH (07:48)
[2022-04-01] MEDS: Ferrous Sulfate 325 MG TAB PO SCH (07:48)
[2022-04-01] MEDS: Clopidogrel Bisulfate 75 MG TAB PO SCH (07:48)
[2022-04-01] MEDS: ZONISAMIDE 25 MG PO SCH (20:32)
[2022-04-02] MEDS: Clopidogrel Bisulfate 75 MG TAB PO SCH (09:52)
[2022-04-02] MEDS: Aspirin Chewable 81 MG TAB PO SCH (09:52)
[2022-04-02] MEDS: Multivitamin W/ Minerals 1 TAB PO SCH (09:52)
[2022-04-02] MEDS: Ferrous Sulfate 325 MG TAB PO SCH (09:52)
[2022-04-02] MEDS: Cholecalciferol 1,000 UNITS (25 MCG) TAB PO SCH (09:52)
[2022-04-02] MEDS: ZONISAMIDE 25 MG PO SCH (20:30)
[2022-04-03 06:08] LABS: #Basophils 0.1 thou/uL (0.0-0.2); #Eosinphils 0.1 thou/uL (0.0-0.7); #Monocytes 0.5 thou/uL (0.11-0.59); %Basophils 1.1 % (0.0-1.0); %Eosinophils 1.8 % (0.0-10.0); %Lymphocytes 34.5 % (21.0-51.0); %Monocytes 9.5 % (0.0-10.0); %Neutrophils 53.1 % (42.0-75.0); Hemoglobin 11.2 g/dL (12.0-16.0); Mean Corpuscular HGB CONC 30.8 g/dL (32.0-36.0); Mean Corpuscular Hemoglobin 31.2 pg (27.0-31.0); Mean Platelet Volume 8.9 fL (7.4-10.4); Platelet Count 228 thou/uL (130-400); RBC Distribution Width 11.8 % (11.5-14.5); Red Blood Cell (RBC) Count 3.59 mill/uL (4.20-5.40); White Blood Cell (WBC) Count 5.7 thou/uL (4.8-10.8)
[2022-04-03 06:14] LABS: BUN (Urea Nitrogen) 10 mg/dL (9.8-20.1); Calc. Creatinine Clearance 65 mL/min (70-130); Calcium 9.7 mg/dL (7.8-10.44); Estimated GFR 90; Glucose 109 mg/dL (83-110)
[2022-04-03 06:19] LABS: Carbon Dioxide 38 mmol/L (23-31)
[2022-04-03 06:22] LABS: Chloride 94 mmol/L (98-107); Potassium 3.9 mmol/L (3.5-5.1); Sodium 141 mmol/L (136-145)
[2022-04-03 08:42] VITALS: BP 128/69; TEMP 97.9
[2022-04-03] MEDS: Cholecalciferol 1,000 UNITS (25 MCG) TAB PO SCH (09:07)
[2022-04-03] MEDS: Torsemide 20 MG TAB PO SCH (09:08)
[2022-04-03] MEDS: Multivitamin W/ Minerals 1 TAB PO SCH (09:08)
[2022-04-03] MEDS: Aspirin Chewable 81 MG TAB PO SCH (09:08)
[2022-04-03] MEDS: Clopidogrel Bisulfate 75 MG TAB PO SCH (09:08)
[2022-04-03] MEDS: Potassium Chloride 20 MEQ TAB PO SCH (09:08)
[2022-04-03] MEDS: Ferrous Sulfate 325 MG TAB PO SCH (09:08)
[2022-04-03] MEDS: Calcium Carbonate 500 MG ChewTAB PO PRN (10:08)
== END 2022-04-03 12:45 | disposition home or self-care (01) | DRG 559 ==
LOC: NAV ACUTE 03-06 18:00
PROVIDERS: ADMIT Family Medicine; ATTEND Family Medicine
DX: S82.892D Other fracture of left lower leg, subsequent encounter for closed fracture with routine healing (principal); U07.1 COVID-19; J96.11 Chronic respiratory failure with hypoxia; J96.12 Chronic respiratory failure with hypercapnia; S82.201D Unspecified fracture of shaft of right tibia, subsequent encounter for closed fracture with routine healing; S92.312D Displaced fracture of first metatarsal bone, left foot, subsequent encounter for fracture with routine healing; S92.322D Displaced fracture of second metatarsal bone, left foot, subsequent encounter for fracture with routine healing; S92.332D Displaced fracture of third metatarsal bone, left foot, subsequent encounter for fracture with routine healing; S92.342D Displaced fracture of fourth metatarsal bone, left foot, subsequent encounter for fracture with routine healing; W19.XXXD Unspecified fall, subsequent encounter; D53.9 Nutritional anemia, unspecified; E87.6 Hypokalemia; J44.9 Chronic obstructive pulmonary disease, unspecified; I25.10 Atherosclerotic heart disease of native coronary artery without angina pectoris; I48.91 Unspecified atrial fibrillation; K21.9 Gastro-esophageal reflux disease without esophagitis; I10 Essential (primary) hypertension; Z99.81 Dependence on supplemental oxygen; Z98.890 Other specified postprocedural states; Z95.5 Presence of coronary angioplasty implant and graft; Z87.891 Personal history of nicotine dependence
CPT/HCPCS: 36415; 71045; 80048; 80053; 82330; 82803; 85025; 87811; 94640; J1650; U0003; U0005

== ENCOUNTER 2023-01-07 12:43 | Emergency (ER) | payer MEDICARE ==
[2023-01-07] MEDS ORDERED: Ipratropium/Albuterol 3 ML NEB ONE ×3 (12:56→13:03)
[2023-01-07] MEDS ORDERED: Ipratropium Bromide 2.5 ml Neb ONE (13:02)
[2023-01-07 13:22] LABS: #Basophils 0.1 thou/uL (0.0-0.2); #Eosinphils 0.1 thou/uL (0.0-0.7); #Lymphocytes 1.7 thou/uL (1.20-3.40); #Monocytes 0.6 thou/uL (0.11-0.59); #Neutrophils 3.6 thou/uL (1.40-6.50); %Basophils 0.9 % (0.0-1.0); %Eosinophils 1.6 % (0.0-10.0); %Lymphocytes 28.5 % (21.0-51.0); %Monocytes 9.2 % (0.0-10.0); %Neutrophils 59.8 % (42.0-75.0); Hematocrit 37.1 % (36.0-47.0); Mean Corpuscular HGB CONC 29.7 g/dL (32.0-36.0); Mean Corpuscular Hemoglobin 29.8 pg (27.0-31.0); Mean Platelet Volume 9.3 fL (7.4-10.4); Platelet Count 168 10x3/uL (130-400); RBC Distribution Width 12.5 % (11.5-14.5); Red Blood Cell (RBC) Count 3.71 mill/uL (4.20-5.40); White Blood Cell (WBC) Count 6.1 10x3/uL (4.8-10.8)
[2023-01-07 13:28] LABS: Base Excess-Venous 13.4 mmol/L (-2.0 to 3.0); Bicarbonate (HCO3v) 44.4 mmol/L (22.0-28.0); CO2 Tension (PvCO2) 93.7 mmHg (42.0-51.0); Calcium, Ionized 1.22 mmol/L (1.15-1.33); Chloride 96 mmol/L (98-107); Hemoglobin - Calc 13.4 g/dL (12.0-16.0); Potassium 3.6 mmol/L (3.5-5.1); Sodium 143 mmol/L (138-145); T. Carbon Dioxide 47.3 mmol/L (22.0-28.0); vO2 Saturation-calc 60.5 % (60.0-85.0)
[2023-01-07 13:29] LABS: ALT (SGPT) 7 U/L (8-55); AST (SGOT) 10 U/L (5-34); Albumin 3.9 g/dL (3.4-4.8); Alkaline Phosphatase 148 U/L (40-110); BUN (Urea Nitrogen) 10 mg/dL (9.8-20.1); Bilirubin, Total 0.3 mg/dL (0.2-1.2); Calc. Creatinine Clearance 0 mL/min (70-130); Calcium 9.4 mg/dL (7.8-10.44); Estimated GFR 86; Globulin 2.3 g/dL (2.4-3.5); Glucose 132 mg/dL (83-110); Protein, Total 6.2 g/dL (5.8-8.1)
[2023-01-07 13:33] LABS: Chloride 95 mmol/L (98-107); Potassium 3.7 mmol/L (3.5-5.1); Sodium 146 mmol/L (136-145)
[2023-01-07 13:43] LABS: Carbon Dioxide 36 mmol/L (23-31)
[2023-01-07 13:44] LABS: Anion Gap 19 mmol/L (10-20)
[2023-01-07 13:48] LABS: Troponin I 0.013 ng/mL (< 0.028)
[2023-01-07] MEDS ORDERED: methylPREDNISolone Sod Succ/PF 125 MG/2 ML VIAL ONE (13:58)
[2023-01-07 20:06] LABS: Actual Bicarbonate (HCO3a) 32.5 mEq/L (22-28); Analyzer IN Cardio ER; Calcium, Ionized (arterial) 1.12 mmol/L (1.12-1.30); Carboxyhemoglobin (COHb) 0.9 gm% (0.0-3.0); Hematocrit-ABG 31 % (36.0-47.0); Hemoglobin (Hb) 10.7 g/dL (12.0-16.0); O2 Tension (PaO2), arterial 179.9 mmHg (> 60.0); Potassium - ABG Lab 2.95 mmol/L (3.70-5.30); pH, Arterial 7.271 (7.35-7.45)
[2023-01-07 20:09] LABS: ALV-art Gradient -70.635 mmHg (0-20); Puncture Site RBA
[2023-01-08 12:46] LABS: CO2 Tension 72.3 mmHg (35.0-45.0)
== END 2023-01-07 15:06 | disposition short-term general hospital (02) ==
LOC: NAV ERS 12:43
DX: J44.1 Chronic obstructive pulmonary disease with (acute) exacerbation (principal); E87.4 Mixed disorder of acid-base balance; I10 Essential (primary) hypertension; I25.10 Atherosclerotic heart disease of native coronary artery without angina pectoris; I48.91 Unspecified atrial fibrillation; K21.9 Gastro-esophageal reflux disease without esophagitis; Z79.82 Long term (current) use of aspirin; Z87.891 Personal history of nicotine dependence
CPT/HCPCS: 36600; 71045; 80053; 82330; 82803; 82805; 83880; 84484; 85025; 85379; 93005; 94660; 94760; 96374; J2930; J7620

== ENCOUNTER 2023-01-19 11:32 | Inpatient (IN) | payer MEDICARE ==
[2023-01-26] MEDS ORDERED: Ibuprofen 200 MG TAB PO PRN (17:19)
[2023-01-26] MEDS ORDERED: Acetaminophen 500 MG TAB PO PRN (17:19)
[2023-01-26] MEDS ORDERED: Senokot S 8.6-50 MG TAB PO PRN (17:22)
[2023-01-26] MEDS ORDERED: Ondansetron ODT 4 MG TAB SL PRN (17:22)
[2023-01-26] MEDS ORDERED: Bisacodyl 5 MG TAB PO PRN (17:22)
[2023-01-26 19:58] VITALS: BMI 24.3
[2023-01-26] MEDS: Cefdinir 300 MG CAP PO SCH (21:26)
[2023-01-26] MEDS: Famotidine 20 MG TAB PO SCH (21:26)
[2023-01-26] MEDS: ZONISAMIDE 25 MG PO SCH (21:27)
[2023-01-27 05:59] LABS: #Lymphocytes 1.6 thou/uL (1.20-3.40); #Monocytes 0.7 thou/uL (0.11-0.59); #Neutrophils 5.1 thou/uL (1.40-6.50); %Basophils 0.5 % (0.0-1.0); %Eosinophils 1.6 % (0.0-10.0); %Lymphocytes 21.7 % (21.0-51.0); %Monocytes 8.7 % (0.0-10.0); %Neutrophils 67.6 % (42.0-75.0); Hematocrit 33.6 % (36.0-47.0); Hemoglobin 10.5 g/dL (12.0-16.0); Mean Corpuscular HGB CONC 31.2 g/dL (32.0-36.0); Mean Corpuscular Hemoglobin 30.1 pg (27.0-31.0); Mean Corpuscular Volume 96.5 fl (78.0-98.0); Mean Platelet Volume 10.5 fL (7.4-10.4); Platelet Count 182 10x3/uL (130-400); RBC Distribution Width 12.7 % (11.5-14.5); Red Blood Cell (RBC) Count 3.48 mill/uL (4.20-5.40); White Blood Cell (WBC) Count 7.5 10x3/uL (4.8-10.8)
[2023-01-27 06:12] LABS: BUN (Urea Nitrogen) 19 mg/dL (9.8-20.1); Calc. Creatinine Clearance 59 mL/min (70-130); Carbon Dioxide 32 mmol/L (23-31); Chloride 94 mmol/L (98-107); Estimated GFR 86; Glucose 94 mg/dL (83-110); Potassium 3.5 mmol/L (3.5-5.1); Sodium 137 mmol/L (136-145)
[2023-01-27 06:13] LABS: ALT (SGPT) 15 U/L (8-55); AST (SGOT) 15 U/L (5-34); Albumin 3.4 g/dL (3.4-4.8); Alkaline Phosphatase 72 U/L (40-110); Bilirubin, Total 0.3 mg/dL (0.2-1.2); Calcium 9.7 mg/dL (7.6-10.4); Globulin 2.6 g/dL (2.4-3.5)
[2023-01-27 06:36] LABS: Anion Gap 15 mmol/L (10-20)
[2023-01-27] MEDS ORDERED: predniSONE 20 MG TAB PO SCH (08:00)
[2023-01-27] MEDS ORDERED: predniSONE 10 MG TAB PO SCH (08:00)
[2023-01-27] MEDS: Cholecalciferol 1,000 UNITS (25 MCG) TAB PO SCH (08:22)
[2023-01-27] MEDS: predniSONE 20 MG TAB PO SCH (08:23)
[2023-01-27] MEDS: Clopidogrel Bisulfate 75 MG TAB PO SCH (08:23)
[2023-01-27] MEDS: Famotidine 20 MG TAB PO SCH ×2 (08:24→21:27)
[2023-01-27] MEDS: ZONISAMIDE 25 MG PO SCH ×2 (08:27→21:31)
[2023-01-27] MEDS: Aspirin Chewable 81 MG TAB PO SCH (08:34)
[2023-01-27] MEDS: Cefdinir 300 MG CAP PO SCH ×2 (08:34→21:27)
[2023-01-27] MEDS ORDERED: Potassium Chloride 20 MEQ TAB PO SCH (09:00)
[2023-01-27] MEDS ORDERED: Torsemide 20 MG TAB PO SCH (09:00)
[2023-01-28] MEDS: Aspirin Chewable 81 MG TAB PO SCH (09:58)
[2023-01-28] MEDS: Cefdinir 300 MG CAP PO SCH (09:58)
[2023-01-28] MEDS: Cholecalciferol 1,000 UNITS (25 MCG) TAB PO SCH (09:58)
[2023-01-28] MEDS: predniSONE 20 MG TAB PO SCH (09:58)
[2023-01-28] MEDS: Famotidine 20 MG TAB PO SCH (09:59)
[2023-01-28] MEDS: Clopidogrel Bisulfate 75 MG TAB PO SCH (09:59)
[2023-01-28] MEDS: ZONISAMIDE 25 MG PO SCH (10:00)
[2023-01-28 17:28] VITALS: BP 136/72; TEMP 98.4
[2023-01-28] MEDS ORDERED: ZONISAMIDE 100 MG PO SCH (21:00)
[2023-02-01] MEDS ORDERED: predniSONE 20 MG TAB PO SCH (08:00)
[2023-02-06] MEDS ORDERED: predniSONE 5 MG TAB PO SCH (08:00)
== END 2023-01-28 17:20 | disposition home or self-care (01) | DRG 948 ==
LOC: NAV ACUTE 01-26 19:31
PROVIDERS: ADMIT Family Medicine; ATTEND Family Medicine
DX: R53.1 Weakness (principal); J96.11 Chronic respiratory failure with hypoxia; J44.1 Chronic obstructive pulmonary disease with (acute) exacerbation; I25.10 Atherosclerotic heart disease of native coronary artery without angina pectoris; I10 Essential (primary) hypertension; K21.9 Gastro-esophageal reflux disease without esophagitis; I48.91 Unspecified atrial fibrillation; Z98.890 Other specified postprocedural states; Z95.5 Presence of coronary angioplasty implant and graft; Z90.49 Acquired absence of other specified parts of digestive tract; Z87.891 Personal history of nicotine dependence; Z88.1 Allergy status to other antibiotic agents; Z88.8 Allergy status to other drugs, medicaments and biological substances
CPT/HCPCS: 36415; 80053; 85025; J7512